=== PATIENT | male | born 1960 | race Caucasian/White ===

== ENCOUNTER 2019-06-22 11:00 | Observation (INO) ==
[~2019-06-22 11:00] MED LIST: MORPHINE SULFATE INJ 4 MG IVP ONE; NS 1000 ML IV ONE; ZOFRAN INJ 4 MG VIAL IVP ONE
[2019-06-22] MEDS ORDERED: ZOFRAN INJ 4 MG VIAL IVP ONE (12:00)
[2019-06-22] MEDS ORDERED: PHENERGAN INJ 25 MG IM ONE ×2 (12:22→21:00)
[2019-06-22] MEDS ORDERED: NS 1000 ML IV ONE (12:22)
[2019-06-22] MEDS ORDERED: DILAUDID INJ IVP ONE ×2 (12:22→17:30)
[2019-06-22] MEDS ORDERED: MORPHINE SULFATE INJ 2 MG INJ IVP ONE ×2 (15:44→19:45)
[2019-06-22] MEDS ORDERED: RESTORIL CAP 30 MG PO ONE (21:00)
[2019-06-23] MEDS ORDERED: DILAUDID INJ IVP ONE (00:01)
[2019-06-23] MEDS ORDERED: RESTORIL CAP 30 MG PO PRN (05:45)
[2019-06-23] MEDS ORDERED: PATIENT'S HOME MEDICATION PO PRN (05:46)
[2019-06-23] MEDS ORDERED: DILAUDID INJ IVP PRN (06:01)
[2019-06-23] MEDS ORDERED: MORPHINE SULFATE INJ 2 MG INJ IVP PRN (06:03)
[2019-06-23] MEDS ORDERED: PHENERGAN INJ 25 MG IM PRN (06:03)
[2019-06-23] MEDS ORDERED: NORCO 5/325 MG TAB PO PRN (06:04)
[2019-06-23 06:16] LABS: BLOOD UREA NITROGEN 31 mg/dL (7-18); CARBON DIOXIDE 21.6 mmol/L (21-32); CHLORIDE 106 mmol/L (98-107); SODIUM 139 mmol/L (136-145)
[2019-06-23 06:17] LABS: ALANINE AMINOTRANSFERASE 20 Units/L (12-78); ALBUMIN 3.5 g/dL (3.4-5.0); ALKALINE PHOSPHATASE 57 Units/L (46-116); AMYLASE 83 Units/L (25-115); ASPARTATE AMINO TRANSFERASE 28 Units/L (15-37); CALCIUM 8.5 mg/dL (8.5-10.1); CREATININE 1.34 mg/dL (0.70-1.30); LIPASE 142 Units/L (73-393); TOTAL PROTEIN 7.4 g/dL (6.4-8.2); eGFR NON BLACK RACES 58 (>60)
[2019-06-23] MEDS ORDERED: NS 1000 ML 1,000 ML IV SCH (07:00)
[2019-06-23] MEDS ORDERED: HYDROCHLOROTHIAZIDE 12.5 MG CAP PO SCH (09:00)
[2019-06-23] MEDS ORDERED: ZESTRIL TAB 20 MG PO SCH (09:00)
[2019-06-23 17:15] VITALS: BP 152/81
[2019-06-26 12:27] LABS: CALCIUM 9.4 mg/dL (8.5-10.1); CARBON DIOXIDE 22.4 mmol/L (21-32); CREATININE 1.71 mg/dL (0.70-1.30)
[2019-06-26 12:28] LABS: HEMATOCRIT 37.4 % (42.0-54.0); HEMOGLOBIN 13.1 g/dL (13.5-18.0); MEAN CORPUSCULAR HEMOGLOBIN 30.8 pg (27.0-34.0); MEAN CORPUSCULAR HGB CONC 34.9 g/dL (33.0-35.0); MEAN CORPUSCULAR VOLUME 88.1 fL (80.0-100.0); RED BLOOD COUNT 4.25 X10^6/uL (4.7-6.0); WHITE BLOOD COUNT 6.9 X10^3/uL (3.6-10.0)
[2019-06-26 12:29] LABS: MEAN PLATELET VOLUME 6.9 fL (7.4-11.0); RED CELL DISTRIBUTION WIDTH 13.4 % (11.6-16.5)
[2019-06-26 12:30] LABS: BASOPHILS % (AUTO) 0.7 % (0.2-1.0); EOSINOPHILS % (AUTO) 0.2 % (0.9-2.9); LYMPHOCYTES # (AUTO) 2.3 X10^3/uL (1.3-2.9); MONOCYTES # (AUTO) 0.6 x10^3/uL (0.3-0.8); MONOCYTES % (AUTO) 8.3 % (0.0-13.0); NEUTROPHILS % (AUTO) 57.8 % (42.0-75.0); PLATELET COUNT 304 X10^3/uL (150.0-450.0)
[2019-06-26 12:40] LABS: APPEARANCE,URINE CLEAR (CLEAR); BILIRUBIN,URINE NEGATIVE (NEGATIVE); BLOOD/HEMOGLOBIN,URINE NEGATIVE (NEGATIVE); COLOR,URINE YELLOW (YELLOW); GLUCOSE, URINE NEGATIVE (NEGATIVE); KETONES,URINE NEGATIVE (NEGATIVE); NITRITES,URINE NEGATIVE (NEGATIVE); PROTEIN,URINE 2+ (NEGATIVE); UROBILINOGEN,URINE NORMAL (NORMAL)
[2019-06-26 12:41] LABS: LEUKOCYTE ESTERASE ,URINE NEGATIVE (NEGATIVE)
[2019-06-26 12:43] LABS: BACTERIA,URINE TRACE /HPF (NEGATIVE); RBC,URINE NONE SEEN /HPF (NONE SEEN); SQUAMOUS EPITHELIAL CELL,UR FEW /HPF (NEGATIVE)
[2019-06-26 12:44] LABS: AMORPHOUS SEDIMENT,UR 1+ /HPF (NEGATIVE); HYALINE CASTS, URINE FEW /LPF (NEGATIVE)
== END 2019-06-23 17:05 | disposition home or self-care (01) ==
LOC: ER 11:00 → ICU 11:00 → OBS 23:10 → ICU 23:12
PROVIDERS: ADMIT Obstetrics & Gynecology Obstetrics; ATTEND Obstetrics & Gynecology Obstetrics
DX: N43.2 Other hydrocele; I10 Essential (primary) hypertension; K50.90 Crohn's disease, unspecified, without complications; R10.84 Generalized abdominal pain; R10.32 Left lower quadrant pain; R00.0 Tachycardia, unspecified; K80.20 Calculus of gallbladder without cholecystitis without obstruction; N28.9 Disorder of kidney and ureter, unspecified; N50.812 Left testicular pain; N50.811 Right testicular pain; K40.20 Bilateral inguinal hernia, without obstruction or gangrene, not specified as recurrent
CPT/HCPCS: 36415; 71010; 71045; 74000; 74018; 74176; 76870; 80048; 80053; 81001; 82150; 83690; 85025; 85610; 93005; 96365; 96367; 96372; 96374; 96375; A4222; G0378; J1170; J2270; J2405; J2550; J7030